=== PATIENT | male | born 1985 | race Two or more races ===

== ENCOUNTER 2020-04-11 18:02 | Inpatient (IN) | payer OTHER ==
--- NOTE | 2020-04-11 19:36 | HP ---
COWS - Scale Resting Pulse: 1= OR 81-100 Sweatin= Chills/Flushing Restless Observation: 1= Difficult to Sit Still Pupil Size: 1= Pupils >than Normal Bone or Joint Aches: 2= Severe Diffuse Aches Runny Nose/ Eye Tearin= Runny Nose/Eyes GI Upset > 30mins: 1= Stomach Cramp Tremor Observation: 1= Tremor [place], Not Seen Yawning Observation: 1= 1-2x During Session Anxiety or Irritability: 1=Feels Anxious/Irritable Goose Flesh Skin: 3=Piloerection COWS Score: 15 CIWA Score - Admission Criteria OASAS Guidelines: Admission for Medically Managed Detox: Requires at least one of the followin. CIWA greater than 12 2. Seizures within the past 24 hours 3. Delirium tremens within the past 24 hours 4. Hallucinations within the past 24 hours 5. Acute intervention needed for co occurring medical disorder 6. Acute intervention needed for co occurring psychiatric disorder 7. Severe withdrawal that cannot be handled at a lower level of care (continued vomiting, continued diarrhea, abnormal vital signs) requiring intravenous medication and/or fluids 8. Admission ROS [facility] Chief Complaint: heroin detox Allergies/Adverse Reactions: Allergies Allergy/AdvReac Type Severity Reaction Status Date / Time No Known Allergies Allergy Verified 04/11/20 19:42 History of Present Illness: 34 yo with states he started using opioids this year. Using 4-5 bags/day- IV use. Used percocets in the past. States last use this morning. Was in a methadone program- left in November [facility]. No medical problems. Not taking medications, except gabapentin 100mg- pt does not know why Has PCP- Dr. Puga in [place] Has narcan kit. Pt states he is homeless. Pt states not working. Utox- THC, Fen, Mop. MTD Exam Limitations: No Limitations - Ebola screening Have you traveled outside of the country in the last 21 days: No - Review of Systems Constitutional: No Symptoms Reported EENT: reports: No Symptoms Reported Respiratory: reports: No Symptoms reported Cardiac: reports: No Symptoms Reported GI: reports: No Symptoms Reported : reports: No Symptoms Reported Musculoskeletal: reports: No Symptoms Reported Integumentary: reports: No Symptoms Reported Neuro: reports: No Symptoms reported Endocrine: reports: No Symptoms Reported Hematology: reports: No Symptoms Reported Psychiatric: reports: No Sypmtoms Reported Other Systems: Reviewed and Negative (says neg ROS except withdrawal Sx) Patient History - Patient Medical History Other Medical History: no medical problems - Patient Surgical History Past Surgical History: No - PPD History Previous Implant?: Yes Documented Results: Negative w/o proof - Smoking Cessation Smoking history: Current every day smoker Have you smoked in the past 12 months: Yes Aproximately how many cigarettes per day: 20 Hx Chewing Tobacco Use: Yes Initiated information on smoking cessation: No 'Breaking Loose' booklet given: 04/11/20 - Substance & Tx. History Hx Alcohol Use: No Hx Substance Use: Yes Substance Use Type: Opiates Hx Substance Use Treatment: Yes - Substances abused Heroin Substance route: Injection Frequency: Daily Amount used: 3-4 bags Age of first use: 33 Date of last use: 04/11/20 Admission Physical Exam BHS - Physical General Appearance: Yes: Mild Distress HEENTM: Yes: Within Normal Limits, EOMI, Hearing grossly Normal, Normal ENT Inspection Respiratory: Yes: Within Normal Limits, Chest Non-Tender, Lungs Clear Neck: Yes: Within Normal Limits Cardiology: Yes: Within Normal Limits, Regular Rhythm, Regular Rate Abdominal: Yes: Within Normal Limits, Normal Bowel Sounds, Flat Genitourinary: Yes: Within Normal Limits Back: Yes: Within Normal Limits Musculoskeletal: Yes: Within Normal Limits Extremities: Yes: Within Normal Limits, Calf Tenderness Neurological: Yes: Motor Strength 5/5 Integumentary: Yes: Within Normal Limits, Track Singh Lymphatic: Yes: Within Normal Limits - Diagnostic (1) Opioid use disorder Current Visit: Yes Status: Acute Breathalyzer - Breathalyzer Breathalyzer: 0 Urine Drug Screen - Test Device Lot number: [id number] Expiration date: 04/08/21 - Control Is test valid?: Yes - Results Drug screen NEGATIVE: No Urine drug screen results: THC-Marijuana, FEN-Fentanyl, MOP-Opiates, MTD- Methadone Inpatient Rehab Admission - Rehab Decision to Admit Inpatient rehab admission?: No
[2020-04-11] MEDS ORDERED: ONDANSETRON *ODT* 4 MG TABLET SL PRN (19:42)
[2020-04-11] MEDS ORDERED: BISMUTH SUBSALICYLATE 524 MG/30 ML UD PO PRN (19:42)
[2020-04-11] MEDS ORDERED: MAGNESIUM HYDROX 2400MG/30ML ORAL SUSPENSION 30 ML CUP PO PRN (19:42)
[2020-04-11] MEDS ORDERED: MENTHOL/PHENOL 1 EACH UD MM PRN (19:42)
[2020-04-11] MEDS ORDERED: NICOTINE POLACRILEX 2 MG GUM BUC PRN (19:42)
[2020-04-11] MEDS ORDERED: cloNIDine HCL 0.1 MG TABLET PO PRN (19:42)
[2020-04-11] MEDS ORDERED: MAGNESIUM CITRATE 300 ML BOTTLE PO PRN (19:42)
[2020-04-11] MEDS ORDERED: MAG HYDROX/AL HYDROX/SIMETH 30 ML UNIT-DOSE CUP PO PRN (19:42)
[2020-04-11] MEDS ORDERED: ACETAMINOPHEN 325 MG TABLET (FP) PO PRN ×2 (19:42)
[2020-04-11] MEDS ORDERED: IBUPROFEN 400 MG TABLET (FP) PO PRN (19:42)
[2020-04-11] MEDS ORDERED: METHADONE HCL 10 MG TABLET (FOR DETOX USE ONLY) PO ONE (21:15)
[2020-04-11 23:56] VITALS: BMI 23.3
[2020-04-12] MEDS: THIAMINE HCL 100 MG TABLET (FP) PO SCH ×2 (00:14→22:27)
[2020-04-12] MEDS: diazePAM 5 MG TABLET PO PRN ×2 (00:14→23:05)
[2020-04-12] MEDS: MELATONIN 5 MG TABLETS PO SCH ×2 (00:18→22:27)
[2020-04-12] MEDS: hydrOXYzine PAMOATE 25 MG CAPSULE (FP) PO SCH ×6 (00:18→22:27)
[2020-04-12] MEDS ORDERED: METHADONE HCL 10 MG TABLET (FOR DETOX USE ONLY) ONE (08:52)
[2020-04-12] MEDS ORDERED: METHADONE HCL 5 MG TABLET (FOR DETOX USE ONLY) ONE (08:53)
[2020-04-12] MEDS ORDERED: METHADONE (DETOX) 20 MG, METHADONE (DETOX) 5 MG PO ONE (10:00)
[2020-04-12] MEDS: NICOTINE 7 MG/24 HOURS TOPICAL PATCH TD SCH (10:12)
[2020-04-12] MEDS: PRENATAL VITAMINS W/ FOLIC ACID TABLET (FP) PO SCH (10:12)
--- NOTE | 2020-04-12 10:56 | EKG ---
Test Reason : Blood Pressure : / mmHG Vent. Rate : 077 BPM Atrial Rate : 077 BPM P-R Int : 206 ms QRS Dur : 100 ms QT Int : 398 ms P-R-T Axes : 079 079 067 degrees QTc Int : 450 ms NORMAL SINUS RHYTHM WITH SINUS ARRHYTHMIA NORMAL ECG NO PREVIOUS ECGS AVAILABLE Confirmed by KRISTIE CERRATO MD ([id number]) on 04/12/2020 10:55:58 AM Referred By: TRISTEN BILLS Confirmed By:KRISTIE CERRATO MD
[2020-04-12] MEDS ORDERED: PNEUMOCOCCAL 23 VACCINE 0.5 ML VIAL IM ONE (12:00)
[2020-04-12] MEDS ORDERED: PNEUMOC 13-VAL CONJ-DIP CRM/PF 0.5 ML DISP.SYRIN IM ONE (12:00)
[2020-04-12 12:30] LABS: HEMATOCRIT 39.8 % (35.4-49); HEMOGLOBIN 13.5 GM/dL (11.7-16.9); MCH 32.1 pg (25.7-33.7); MCHC 33.9 g/dl (32.0-35.9); MEAN CELL VOLUME 94.8 fl (80-96); MEAN PLT VOLUME 9.2 fl (7.5-11.1); PLATELET COUNT 218 K/MM3 (134-434); RDW 14.1 % (11.9-15.9)
[2020-04-12 12:44] LABS: ALBUMIN 3.2 g/dl (3.4-5.0); BILIRUBIN,TOTAL 0.8 mg/dL (0.2-1); BLOOD UREA NITROGEN 11.8 mg/dL (7-18); CALCIUM 8.4 mg/dL (8.5-10.1); CREATININE 0.6 mg/dL (0.55-1.3); POTASSIUM 3.5 mmol/L (3.5-5.1)
--- NOTE | 2020-04-12 16:12 | PN ---
BHS COWS - Scale Resting Pulse: 0= NH 80 or Below Sweatin= Chills/Flushing Restless Observation: 0= Sits Still Pupil Size: 1= Pupils >than Normal Bone or Joint Aches: 2= Severe Diffuse Aches Runny Nose/ Eye Tearin= Runny Nose/Eyes GI Upset > 30mins: 2= Nausea/Diarrhea Tremor Observation of Outstretched Hands: 2= Slight Tremor Visible Yawning Observation: 1= 1-2x During Session Anxiety or Irritability: 2=Irritable/Anxious Goose Flesh Skin: 0=Smooth Skin COWS Score: 13 BHS Progress Note (SOAP) Subjective: alert,irritable,anxious,interrupted sleep,tremor,pain in the body and back,nausea,diarrhea Objective: 04/12/20 16:11 Laboratory Last Values WBC 6.0 K/mm3 (4.0-10.0) 04/12/20 08:40 RBC 4.20 M/mm3 (4.00-5.60) 04/12/20 08:40 Hgb 13.5 GM/dL (11.7-16.9) 04/12/20 08:40 Hct 39.8 % (35.4-49) 04/12/20 08:40 MCV 94.8 fl (80-96) 04/12/20 08:40 MCH 32.1 pg (25.7-33.7) 04/12/20 08:40 MCHC 33.9 g/dl (32.0-35.9) 04/12/20 08:40 RDW 14.1 % (11.9-15.9) 04/12/20 08:40 Plt Count 218 K/MM3 (134-434) 04/12/20 08:40 MPV 9.2 fl (7.5-11.1) 04/12/20 08:40 Sodium 144 mmol/L (136-145) 04/12/20 08:40 Potassium 3.5 mmol/L (3.5-5.1) 04/12/20 08:40 Chloride 106 mmol/L (98-107) 04/12/20 08:40 Carbon Dioxide 33 mmol/L (21-32) H 04/12/20 08:40 Anion Gap 4 MMOL/L (8-16) L 04/12/20 08:40 BUN 11.8 mg/dL (7-18) 04/12/20 08:40 Creatinine 0.6 mg/dL (0.55-1.3) 04/12/20 08:40 Est GFR (CKD-EPI)AfAm 153.11 04/12/20 08:40 Est GFR (CKD-EPI)NonAf 132.10 04/12/20 08:40 Random Glucose 79 mg/dL (74-106) 04/12/20 08:40 Calcium 8.4 mg/dL (8.5-10.1) L 04/12/20 08:40 Total Bilirubin 0.8 mg/dL (0.2-1) 04/12/20 08:40 AST 53 U/L (15-37) H 04/12/20 08:40 ALT 62 U/L (13-61) H 04/12/20 08:40 Alkaline Phosphatase 65 U/L (45-117) 04/12/20 08:40 Total Protein 6.0 g/dl (6.4-8.2) L 04/12/20 08:40 Albumin 3.2 g/dl (3.4-5.0) L 04/12/20 08:40 Syphilis Serology Non-reactive (NONREACTIVE) 04/12/20 08:40 HIV Ag/Ab Combo Qual Negative (NEGATIVE) 04/12/20 08:40 Assessment: 04/12/20 16:11 withdrawal symptom Plan: continue detox methadone regimen,valium 10 mgs po q 4 hrs for severe withdrawal for 72 hrs,fluid
[2020-04-12] MEDS: METHOCARBAMOL 500 MG TABLET PO PRN (23:54)
[2020-04-13] MEDS: diazePAM 5 MG TABLET PO PRN (03:24)
[2020-04-13] MEDS: hydrOXYzine PAMOATE 25 MG CAPSULE (FP) PO SCH ×3 (06:03→14:51)
--- NOTE | 2020-04-13 09:47 | PN ---
[facility] CIWA - CIWA Score Nausea/Vomitin-No Nausea/No Vomiting Muscle Tremors: None Anxiety: 3 Agitation: 2 Paroxysmal Sweats: 3 Orientation: 0-Oriented Tacttile Disturbances: 0-None Auditory Disturbances: 0-None Visual Disturbances: 0-None Headache: 2-Mild CIWA-Ar Total Score: 10 S Progress Note (SOAP) Subjective: c/o anxiety, irritability, sweats, and headache. Objective: 04/13/20 12:13 Vital Signs 04/13/20 04/13/20 06:20 08:45 Temperature 97.2 F L 97.5 F L Pulse Rate 66 71 Respiratory 18 18 Rate Blood Pressure 105/66 115/79 O2 Sat by Pulse 100 Oximetry (%) Laboratory Last Values WBC 6.0 K/mm3 (4.0-10.0) 04/12/20 08:40 RBC 4.20 M/mm3 (4.00-5.60) 04/12/20 08:40 Hgb 13.5 GM/dL (11.7-16.9) 04/12/20 08:40 Hct 39.8 % (35.4-49) 04/12/20 08:40 MCV 94.8 fl (80-96) 04/12/20 08:40 MCH 32.1 pg (25.7-33.7) 04/12/20 08:40 MCHC 33.9 g/dl (32.0-35.9) 04/12/20 08:40 RDW 14.1 % (11.9-15.9) 04/12/20 08:40 Plt Count 218 K/MM3 (134-434) 04/12/20 08:40 MPV 9.2 fl (7.5-11.1) 04/12/20 08:40 Sodium 144 mmol/L (136-145) 04/12/20 08:40 Potassium 3.5 mmol/L (3.5-5.1) 04/12/20 08:40 Chloride 106 mmol/L (98-107) 04/12/20 08:40 Carbon Dioxide 33 mmol/L (21-32) H 04/12/20 08:40 Anion Gap 4 MMOL/L (8-16) L 04/12/20 08:40 BUN 11.8 mg/dL (7-18) 04/12/20 08:40 Creatinine 0.6 mg/dL (0.55-1.3) 04/12/20 08:40 Est GFR (CKD-EPI)AfAm 153.11 04/12/20 08:40 Est GFR (CKD-EPI)NonAf 132.10 04/12/20 08:40 Random Glucose 79 mg/dL (74-106) 04/12/20 08:40 Calcium 8.4 mg/dL (8.5-10.1) L 04/12/20 08:40 Total Bilirubin 0.8 mg/dL (0.2-1) 04/12/20 08:40 AST 53 U/L (15-37) H 04/12/20 08:40 ALT 62 U/L (13-61) H 04/12/20 08:40 Alkaline Phosphatase 65 U/L (45-117) 04/12/20 08:40 Total Protein 6.0 g/dl (6.4-8.2) L 04/12/20 08:40 Albumin 3.2 g/dl (3.4-5.0) L 04/12/20 08:40 Syphilis Serology Non-reactive (NONREACTIVE) 04/12/20 08:40 HIV Ag/Ab Combo Qual Negative (NEGATIVE) 04/12/20 08:40 Labs noted. Assessment: 04/13/20 09:47 AOX3, in no acute respiratory distress. Full ROM, ambulating in the unit. Withdrawal symptoms. Plan: continue detox.
[2020-04-13] MEDS ORDERED: METHADONE HCL 10 MG TABLET (FOR DETOX USE ONLY) PO ONE (10:00)
[2020-04-13] MEDS: PRENATAL VITAMINS W/ FOLIC ACID TABLET (FP) PO SCH (10:01)
[2020-04-13] MEDS: NICOTINE 7 MG/24 HOURS TOPICAL PATCH TD SCH (10:01)
[2020-04-13] MEDS: METHOCARBAMOL 500 MG TABLET PO PRN (10:03)
[2020-04-13 17:10] VITALS: BP 119/71; PULSE 64; TEMP 97.5
--- NOTE | 2020-04-13 22:37 | DS ---
[facility] Detox Discharge Summary Admission Date: 04/11/20 Discharge Date: 04/13/20 - History Present History: Opioid Dependence Additional Comments: CLIENT SIGNED OUT AMA FOR PERSONAL REASON. DENIES SI/HI/AVH. RISKS IN ABRUPTING TXMENT DISCUSSED. CLIENT ACCEPTS RISKS TO INCLUDE OVERDOSE AND . HE IS A/O X3 NAD DENIES SOB, C.P. SKIN- INTACT AMBULATING SELF W/O DIFFICULTY, STEADY GAIT Pertinent Past History: DENIES - Physical Exam Results Vital Signs: Vital Signs Temperature 97.5 F L 04/13/20 16:23 Pulse Rate 64 04/13/20 16:23 Respiratory Rate 18 04/13/20 16:23 Blood Pressure 119/71 04/13/20 16:23 O2 Sat by Pulse Oximetry (%) 98 04/13/20 16:23 Pertinent Admission Physical Exam Findings: WITHDRAWAL SX'S Laboratory Tests 04/11/20 04/12/20 04/12/20 21:20 08:40 08:40 WBC 6.0 RBC 4.20 Hgb 13.5 Hct 39.8 MCV 94.8 MCH 32.1 MCHC 33.9 RDW 14.1 Plt Count 218 MPV 9.2 Sodium Potassium Chloride Carbon Dioxide Anion Gap BUN Creatinine Est GFR (CKD-EPI)AfAm Est GFR (CKD-EPI)NonAf Random Glucose Calcium Total Bilirubin AST ALT Alkaline Phosphatase Total Protein Albumin Syphilis Serology Non-reactive COVID-19 (ELIEL) Not detected HIV Ag/Ab Combo Qual 04/12/20 04/12/20 08:40 08:40 WBC RBC Hgb Hct MCV MCH MCHC RDW Plt Count MPV Sodium 144 Potassium 3.5 Chloride 106 Carbon Dioxide 33 H Anion Gap 4 L BUN 11.8 Creatinine 0.6 Est GFR (CKD-EPI)AfAm 153.11 Est GFR (CKD-EPI)NonAf 132.10 Random Glucose 79 Calcium 8.4 L Total Bilirubin 0.8 AST 53 H ALT 62 H Alkaline Phosphatase 65 Total Protein 6.0 L Albumin 3.2 L Syphilis Serology COVID-19 (ELIEL) HIV Ag/Ab Combo Qual Negative - Treatment Hospital Course: Discharged Condition Good Patient has Accepted a Rehab Referral to: SIGNED OUT AMA - Medication Discharge Medications: Ambulatory Orders Gabapentin 100 mg PO BID 04/11/20 - Diagnosis (1) Opioid use disorder Status: Resolved - AMA Did Patient Leave Against Medical Advice: Yes
[2020-04-14] MEDS ORDERED: METHADONE (DETOX) 10 MG, METHADONE (DETOX) 5 MG PO ONE (10:00)
[2020-04-15] MEDS ORDERED: METHADONE HCL 10 MG TABLET (FOR DETOX USE ONLY) PO ONE (10:00)
[2020-04-16] MEDS ORDERED: METHADONE HCL 5 MG TABLET (FOR DETOX USE ONLY) PO ONE (06:00)
== END 2020-04-13 17:45 | disposition left against medical advice (07) | DRG 770 ==
LOC: YASAS 18:02 → Y3N 20:56
PROVIDERS: ADMIT Allergy & Immunology; ATTEND Allergy & Immunology
PROC: HZ2ZZZZ Detoxification Services for Substance Abuse Treatment (ICD-10-PCS; principal; 2020-04-11)
DX: F11.23 Opioid dependence with withdrawal (principal); F17.210 Nicotine dependence, cigarettes, uncomplicated
CPT/HCPCS: 36415; 80053; 85027; 86780; 87389; 90732; 93005; 93010; G0009; J0735; U0003